=== PATIENT | male | born 1970 | race Two or more races ===

== ENCOUNTER 2021-11-02 19:58 | Inpatient (IN) | payer MEDICAID, OTHER ==
[~2021-11-02] VITALS: Ht 190.5 cm; Wt 83.5 kg
[2021-11-02 21:08] LABS: BASOPHILS % (AUTO) 0.3 % (0.0-2.0); EOSINOPHILS % (AUTO) 0.2 % (0.0-6.0); HEMATOCRIT 29 % (39-51); HEMOGLOBIN 9.5 g/dL (13.5-17.5); LYMPHOCYTES # (AUTO) 0.6 K/uL (0.8-4.8); LYMPHOCYTES % (AUTO) 5.9 % (20.0-44.0); MEAN CORPUSCULAR HGB CONC 33 g/dl (31.0-36.0); MEAN CORPUSCULAR VOLUME 86 fL (80-96); MONOCYTES # (AUTO) 0.6 K/uL (0.1-1.30); MONOCYTES % (AUTO) 5.6 % (2.0-12.0); NEUTROPHILS # (AUTO) 8.7 K/uL (1.8-8.9); PLATELET COUNT (AUTO) 405 K/uL (150-450); RED BLOOD CELL COUNT(AUTO) 3.39 MIL/uL (4.5-6.0); WHITE BLOOD COUNT (AUTO) 9.9 K/uL (4.3-11.0)
[2021-11-02] MEDS ORDERED: VANCOMYCIN 1 GM VIAL ONE (21:12)
[2021-11-02] MEDS ORDERED: VANCOMYCIN 500 MG VIAL ONE (21:12)
[2021-11-02] MEDS ORDERED: VANCOMYCIN HCL 1.25 GM in IV D5W 260 ML IV ONE (21:30)
[2021-11-02 21:41] LABS: CALCIUM, SERUM 8.4 mg/dL (8.5-10.1); CREATININE 1.3 mg/dL (0.6-1.3); POTASSIUM 4.9 mmol/L (3.5-5.1)
[2021-11-02] MEDS ORDERED: ZOLPIDEM TARTRATE 5 MG TABLET PO PRN (22:30)
[2021-11-02] MEDS ORDERED: MAGNESIUM HYDROXIDE 30 ML UDC PO PRN (22:30)
[2021-11-02] MEDS ORDERED: MAG HYDROX/AL HYDROX/SIMETH 30 ML UDC PO PRN (22:30)
[2021-11-02] MEDS ORDERED: Z GUARD REMEDY 4 OZ OINT TP PRN (22:30)
[2021-11-02] MEDS ORDERED: ONDANSETRON HCL/PF 4 MG/2 ML VIAL IVP PRN (22:30)
[2021-11-02] MEDS ORDERED: DEXTROSE 50%-WATER 50 ML DISP.SYRIN IV PRN (22:30)
[2021-11-02] MEDS ORDERED: HYDROCODONE/APAP 10/325MG TABLET PO PRN (22:30)
[2021-11-02] MEDS ORDERED: ACETAMINOPHEN 325 MG TABLET PO PRN (22:30)
[2021-11-02] MEDS ORDERED: HYDROMORPHONE 1 MG/1 ML DISP.SYRIN ONE (23:49)
[2021-11-03 01:00] VITALS: BP 125/71
[2021-11-03] MEDS: LORAZEPAM INJ 2 MG/ML VIAL IV PRN ×2 (01:30→20:22)
[2021-11-03] MEDS ORDERED: NALOXONE HCL 0.4 MG/ML AMPUL IV PRN (02:00)
[2021-11-03] MEDS ORDERED: oxyCODONE HCL SR 10MG TAB.SR.12H PO SCH (02:00)
[2021-11-03] MEDS ORDERED: PRED5TAB48 PO (03:19)
[2021-11-03] MEDS ORDERED: AMOX500C2 PO (03:19)
[2021-11-03] MEDS ORDERED: TOPI50TA24 PO (03:19)
[2021-11-03] MEDS ORDERED: CARV3.122 PO (03:19)
[2021-11-03] MEDS ORDERED: COLC0.6C3 PO (03:19)
[2021-11-03] MEDS ORDERED: FURO40TA5 PO (03:19)
[2021-11-03] MEDS ORDERED: OXYC15TA2 PO (03:19)
[2021-11-03] MEDS ORDERED: LITH300T3 PO (03:19)
[2021-11-03] MEDS ORDERED: GABA600T12 PO (03:19)
[2021-11-03] MEDS ORDERED: MIRT-90 PO (03:19)
[2021-11-03] MEDS ORDERED: METF-442 PO (03:19)
[2021-11-03] MEDS ORDERED: MEROPENEM 1 G VIAL IV ONE (03:43)
[2021-11-03] MEDS ORDERED: TOPIRAMATE 25 MG TABLET PO PRN (04:00)
[2021-11-03] MEDS: oxyCODONE IR immediate release 5 MG PO PRN ×3 (04:10→18:06)
[2021-11-03] MEDS ORDERED: MEROPENEM 1 G in IV NS 0.9% 100 ML IV SCH (05:00)
[2021-11-03 07:07] LABS: BASOPHILS % (AUTO) 0.4 % (0.0-2.0); HEMATOCRIT 28 % (39-51); HEMOGLOBIN 9.2 g/dL (13.5-17.5); LYMPHOCYTES # (AUTO) 1.4 K/uL (0.8-4.8); LYMPHOCYTES % (AUTO) 11.4 % (20.0-44.0); MEAN CORPUSCULAR HGB CONC 33 g/dl (31.0-36.0); MEAN CORPUSCULAR VOLUME 84 fL (80-96); MONOCYTES # (AUTO) 1.1 K/uL (0.1-1.30); MONOCYTES % (AUTO) 8.7 % (2.0-12.0); NEUTROPHILS % (AUTO) 78.5 % (43.0-81.0); PLATELET COUNT (AUTO) 426 K/uL (150-450); RED BLOOD CELL COUNT(AUTO) 3.35 MIL/uL (4.5-6.0); WHITE BLOOD COUNT (AUTO) 12.7 K/uL (4.3-11.0)
[2021-11-03] MEDS: HYDROMORPHONE INJ 2 MG/ML DISP.SYRIN IV PRN ×4 (07:17→23:47)
[2021-11-03 07:29] LABS: CALCIUM, SERUM 8.5 mg/dL (8.5-10.1); CREATININE 1.1 mg/dL (0.6-1.3); MAGNESIUM 1.8 mg/dL (1.8-2.4); PHOSPHORUS 2.6 mg/dL (2.5-4.9); POTASSIUM 4.3 mmol/L (3.5-5.1)
[2021-11-03] MEDS: BLOOD SUGAR DIAGNOSTIC 1 EACH STRIP VI SCH ×4 (07:35→21:20)
[2021-11-03] MEDS: INSULIN REGULAR, HUMAN 100 UNIT/ML 3 ML VIAL SQ PRN ×3 (07:39→17:13)
[2021-11-03] MEDS: VANCOMYCIN 0.75 GM in IV D5W 250 ML IV SCH ×3 (08:09→23:43)
[2021-11-03] MEDS: COLCHICINE 0.6 MG TABLET PO SCH (08:54)
[2021-11-03] MEDS: GABAPENTIN 300 MG CAPSULE PO SCH ×3 (08:54→16:12)
[2021-11-03] MEDS: CARVEDILOL 3.125 MG TABLET PO SCH ×2 (08:55→16:18)
[2021-11-03] MEDS: CLOTRIMAZOLE 1% 15 GM TUBE TP SCH ×2 (08:55→16:12)
[2021-11-03] MEDS ORDERED: LITHIUM CARBONATE ER 300 MG TABLET.SA PO SCH (09:00)
[2021-11-03] MEDS: LITHIUM CARBONATE (300 MG CAP) 300 MG CAPSULE PO SCH ×2 (09:22→16:12)
[2021-11-03] MEDS: MEROPENEM 1 G in IV NS 0.9% 100 ML IV SCH ×2 (12:08→20:22)
[2021-11-03 20:00] VITALS: BP 113/74
[2021-11-03] MEDS: MIRTAZAPINE 15 MG TABLET PO SCH (21:19)
[2021-11-03] MEDS: *INSULIN REGULAR(HUMULIN R)HUM 100 UNIT/ML VIAL SQ PRN (21:21)
[2021-11-04] MEDS: LORAZEPAM INJ 2 MG/ML VIAL IV PRN ×2 (03:00→16:52)
[2021-11-04 04:00] VITALS: BP 99/59
[2021-11-04] MEDS: MEROPENEM 1 G in IV NS 0.9% 100 ML IV SCH ×3 (04:56→20:10)
[2021-11-04 07:21] LABS: BASOPHILS # (AUTO) 0.1 K/uL (0.0-0.2); BASOPHILS % (AUTO) 0.8 % (0.0-2.0); EOSINOPHILS % (AUTO) 1.6 % (0.0-6.0); HEMATOCRIT 29 % (39-51); HEMOGLOBIN 9.3 g/dL (13.5-17.5); LYMPHOCYTES # (AUTO) 1.5 K/uL (0.8-4.8); LYMPHOCYTES % (AUTO) 15.7 % (20.0-44.0); MEAN CORPUSCULAR HGB CONC 33 g/dl (31.0-36.0); MEAN CORPUSCULAR VOLUME 85 fL (80-96); MONOCYTES # (AUTO) 0.8 K/uL (0.1-1.30); MONOCYTES % (AUTO) 8.5 % (2.0-12.0); NEUTROPHILS % (AUTO) 73.4 % (43.0-81.0); PLATELET COUNT (AUTO) 465 K/uL (150-450); RED BLOOD CELL COUNT(AUTO) 3.37 MIL/uL (4.5-6.0); WHITE BLOOD COUNT (AUTO) 9.5 K/uL (4.3-11.0)
[2021-11-04] MEDS: BLOOD SUGAR DIAGNOSTIC 1 EACH STRIP VI SCH ×4 (07:24→22:19)
[2021-11-04] MEDS: INSULIN REGULAR, HUMAN 100 UNIT/ML 3 ML VIAL SQ PRN ×3 (07:25→17:33)
[2021-11-04 07:27] LABS: CALCIUM, SERUM 8.6 mg/dL (8.5-10.1); CREATININE 1.2 mg/dL (0.6-1.3); POTASSIUM 4.4 mmol/L (3.5-5.1)
[2021-11-04] MEDS: VANCOMYCIN 0.75 GM in IV D5W 250 ML IV SCH ×2 (08:00→15:16)
[2021-11-04] MEDS: GABAPENTIN 300 MG CAPSULE PO SCH ×3 (08:51→16:51)
[2021-11-04] MEDS: CARVEDILOL 3.125 MG TABLET PO SCH ×2 (08:53→16:50)
[2021-11-04] MEDS: COLCHICINE 0.6 MG TABLET PO SCH (08:53)
[2021-11-04] MEDS: CLOTRIMAZOLE 1% 15 GM TUBE TP SCH ×2 (08:54→16:51)
[2021-11-04] MEDS: HYDROMORPHONE INJ 2 MG/ML DISP.SYRIN IV PRN ×3 (08:55→20:10)
[2021-11-04] MEDS: THERAHONEY GEL 1.5 OZ TUBE TP SCH (09:37)
[2021-11-04] MEDS: LITHIUM CARBONATE (300 MG CAP) 300 MG CAPSULE PO SCH ×2 (09:47→16:50)
[2021-11-04] MEDS: oxyCODONE IR immediate release 5 MG PO PRN ×2 (10:31→22:50)
[2021-11-04 16:00] VITALS: BP 103/77
[2021-11-04 20:00] VITALS: BP 108/68
[2021-11-04] MEDS: MIRTAZAPINE 15 MG TABLET PO SCH (22:19)
[2021-11-04] MEDS: *INSULIN REGULAR(HUMULIN R)HUM 100 UNIT/ML VIAL SQ PRN (22:20)
[2021-11-05] MEDS: VANCOMYCIN 0.75 GM in IV D5W 250 ML IV SCH ×2 (03:57→15:18)
[2021-11-05 04:00] VITALS: BP 107/61
[2021-11-05] MEDS: HYDROMORPHONE INJ 2 MG/ML DISP.SYRIN IV PRN ×2 (04:38→21:13)
[2021-11-05] MEDS: MEROPENEM 1 G in IV NS 0.9% 100 ML IV SCH ×3 (05:30→21:04)
[2021-11-05 06:44] LABS: CALCIUM, SERUM 8.3 mg/dL (8.5-10.1); CREATININE 1.4 mg/dL (0.6-1.3); POTASSIUM 4.5 mmol/L (3.5-5.1)
[2021-11-05 06:51] LABS: BASOPHILS # (AUTO) 0.1 K/uL (0.0-0.2); BASOPHILS % (AUTO) 0.6 % (0.0-2.0); EOSINOPHILS % (AUTO) 1.5 % (0.0-6.0); HEMATOCRIT 29 % (39-51); HEMOGLOBIN 9.3 g/dL (13.5-17.5); LYMPHOCYTES # (AUTO) 1.7 K/uL (0.8-4.8); LYMPHOCYTES % (AUTO) 17.6 % (20.0-44.0); MEAN CORPUSCULAR HGB CONC 33 g/dl (31.0-36.0); MEAN CORPUSCULAR VOLUME 85 fL (80-96); MONOCYTES # (AUTO) 0.9 K/uL (0.1-1.30); MONOCYTES % (AUTO) 9.4 % (2.0-12.0); NEUTROPHILS # (AUTO) 6.7 K/uL (1.8-8.9); NEUTROPHILS % (AUTO) 70.9 % (43.0-81.0); PLATELET COUNT (AUTO) 473 K/uL (150-450); RED BLOOD CELL COUNT(AUTO) 3.36 MIL/uL (4.5-6.0); WHITE BLOOD COUNT (AUTO) 9.5 K/uL (4.3-11.0)
[2021-11-05] MEDS: BLOOD SUGAR DIAGNOSTIC 1 EACH STRIP VI SCH ×4 (07:29→21:57)
[2021-11-05] MEDS: oxyCODONE IR immediate release 5 MG PO PRN ×2 (08:00→14:53)
[2021-11-05] MEDS: INSULIN REGULAR, HUMAN 100 UNIT/ML 3 ML VIAL SQ PRN ×2 (08:31→17:35)
[2021-11-05] MEDS: CLOTRIMAZOLE 1% 15 GM TUBE TP SCH ×2 (08:40→17:22)
[2021-11-05] MEDS: THERAHONEY GEL 1.5 OZ TUBE TP SCH (08:40)
[2021-11-05] MEDS: COLCHICINE 0.6 MG TABLET PO SCH (08:46)
[2021-11-05] MEDS: LITHIUM CARBONATE (300 MG CAP) 300 MG CAPSULE PO SCH ×2 (08:46→17:21)
[2021-11-05] MEDS: GABAPENTIN 300 MG CAPSULE PO SCH ×3 (08:46→17:21)
[2021-11-05] MEDS: CARVEDILOL 3.125 MG TABLET PO SCH ×2 (08:46→17:00)
[2021-11-05 12:00] VITALS: BP 116/73
[2021-11-05 20:00] VITALS: BP 107/55
[2021-11-05] MEDS: MIRTAZAPINE 15 MG TABLET PO SCH (21:04)
[2021-11-06] MEDS: VANCOMYCIN 0.75 GM in IV D5W 250 ML IV SCH ×2 (02:01→15:03)
[2021-11-06] MEDS: oxyCODONE IR immediate release 5 MG PO PRN ×2 (02:56→15:29)
[2021-11-06 04:00] VITALS: BP 156/68
[2021-11-06] MEDS: MEROPENEM 1 G in IV NS 0.9% 100 ML IV SCH ×3 (04:04→20:48)
[2021-11-06] MEDS: LORAZEPAM INJ 2 MG/ML VIAL IV PRN ×3 (06:19→20:14)
[2021-11-06 06:26] LABS: BASOPHILS % (AUTO) 0.7 % (0.0-2.0); EOSINOPHILS % (AUTO) 1.9 % (0.0-6.0); HEMATOCRIT 28 % (39-51); HEMOGLOBIN 9.2 g/dL (13.5-17.5); MEAN CORPUSCULAR HGB CONC 33 g/dl (31.0-36.0); MEAN CORPUSCULAR VOLUME 84 fL (80-96); MONOCYTES % (AUTO) 8.2 % (2.0-12.0); NEUTROPHILS % (AUTO) 74.2 % (43.0-81.0); PLATELET COUNT (AUTO) 455 K/uL (150-450); RED BLOOD CELL COUNT(AUTO) 3.32 MIL/uL (4.5-6.0); WHITE BLOOD COUNT (AUTO) 9.1 K/uL (4.3-11.0)
[2021-11-06 06:27] LABS: BASOPHILS # (AUTO) 0.1 K/uL (0.0-0.2); LYMPHOCYTES # (AUTO) 1.4 K/uL (0.8-4.8); MONOCYTES # (AUTO) 0.7 K/uL (0.1-1.30); NEUTROPHILS # (AUTO) 6.8 K/uL (1.8-8.9)
[2021-11-06 06:45] LABS: CALCIUM, SERUM 8.5 mg/dL (8.5-10.1); CREATININE 1.3 mg/dL (0.6-1.3); POTASSIUM 4.3 mmol/L (3.5-5.1)
[2021-11-06] MEDS: GABAPENTIN 300 MG CAPSULE PO SCH ×3 (08:20→17:04)
[2021-11-06] MEDS: LITHIUM CARBONATE (300 MG CAP) 300 MG CAPSULE PO SCH ×2 (08:20→17:04)
[2021-11-06] MEDS: COLCHICINE 0.6 MG TABLET PO SCH (08:20)
[2021-11-06] MEDS: CARVEDILOL 3.125 MG TABLET PO SCH ×2 (08:20→17:04)
[2021-11-06] MEDS: *INSULIN REGULAR(HUMULIN R)HUM 100 UNIT/ML VIAL SQ PRN ×4 (08:21→22:11)
[2021-11-06] MEDS: BLOOD SUGAR DIAGNOSTIC 1 EACH STRIP VI SCH ×4 (08:21→22:12)
[2021-11-06] MEDS: HYDROMORPHONE INJ 2 MG/ML DISP.SYRIN IV PRN ×4 (08:30→21:19)
[2021-11-06] MEDS: THERAHONEY GEL 1.5 OZ TUBE TP SCH (08:46)
[2021-11-06] MEDS: CLOTRIMAZOLE 1% 15 GM TUBE TP SCH ×2 (08:46→17:04)
[2021-11-06 09:36] VITALS: BP 115/71
[2021-11-06 12:00] VITALS: BP 105/44
[2021-11-06] MEDS: GLUCERNA SHAKE 237 ML CAN PO SCH ×2 (12:35→17:24)
[2021-11-06 20:00] VITALS: BP 119/65
[2021-11-06] MEDS: MIRTAZAPINE 15 MG TABLET PO SCH (21:21)
[2021-11-07] MEDS: HYDROMORPHONE INJ 2 MG/ML DISP.SYRIN IV PRN ×4 (01:22→20:01)
[2021-11-07] MEDS: VANCOMYCIN 0.75 GM in IV D5W 250 ML IV SCH ×2 (03:27→14:32)
[2021-11-07 04:00] VITALS: BP 110/60
[2021-11-07] MEDS: LORAZEPAM INJ 2 MG/ML VIAL IV PRN ×3 (04:04→21:22)
[2021-11-07] MEDS: MEROPENEM 1 G in IV NS 0.9% 100 ML IV SCH ×3 (04:04→21:22)
[2021-11-07 07:09] LABS: CALCIUM, SERUM 8.5 mg/dL (8.5-10.1); CREATININE 1.3 mg/dL (0.6-1.3); POTASSIUM 4.4 mmol/L (3.5-5.1)
[2021-11-07] MEDS: BLOOD SUGAR DIAGNOSTIC 1 EACH STRIP VI SCH ×4 (08:19→22:22)
[2021-11-07] MEDS: GLUCERNA SHAKE 237 ML CAN PO SCH ×3 (08:19→17:30)
[2021-11-07] MEDS: CARVEDILOL 3.125 MG TABLET PO SCH ×2 (08:20→17:29)
[2021-11-07] MEDS: GABAPENTIN 300 MG CAPSULE PO SCH ×3 (08:20→17:29)
[2021-11-07] MEDS: COLCHICINE 0.6 MG TABLET PO SCH (08:20)
[2021-11-07] MEDS: LITHIUM CARBONATE (300 MG CAP) 300 MG CAPSULE PO SCH ×2 (08:20→17:29)
[2021-11-07] MEDS: *INSULIN REGULAR(HUMULIN R)HUM 100 UNIT/ML VIAL SQ PRN ×4 (08:35→22:22)
[2021-11-07] MEDS: THERAHONEY GEL 1.5 OZ TUBE TP SCH (08:36)
[2021-11-07] MEDS: CLOTRIMAZOLE 1% 15 GM TUBE TP SCH ×2 (08:36→17:30)
[2021-11-07 12:00] VITALS: BP 114/60
[2021-11-07] MEDS: oxyCODONE IR immediate release 5 MG PO PRN (15:32)
[2021-11-07 20:00] VITALS: BP 103/59
[2021-11-07] MEDS: MIRTAZAPINE 15 MG TABLET PO SCH (21:22)
[2021-11-08] MEDS: VANCOMYCIN 0.75 GM in IV D5W 250 ML IV SCH ×2 (03:51→15:26)
[2021-11-08 04:00] VITALS: BP 116/58
[2021-11-08] MEDS: MEROPENEM 1 G in IV NS 0.9% 100 ML IV SCH ×3 (05:38→21:02)
[2021-11-08 07:23] LABS: BASOPHILS # (AUTO) 0.1 K/uL (0.0-0.2); BASOPHILS % (AUTO) 0.7 % (0.0-2.0); HEMATOCRIT 28 % (39-51); LYMPHOCYTES # (AUTO) 1.2 K/uL (0.8-4.8); MEAN CORPUSCULAR HGB CONC 33 g/dl (31.0-36.0); MEAN CORPUSCULAR VOLUME 85 fL (80-96); MONOCYTES # (AUTO) 0.9 K/uL (0.1-1.30); MONOCYTES % (AUTO) 10.8 % (2.0-12.0); NEUTROPHILS # (AUTO) 5.6 K/uL (1.8-8.9); NEUTROPHILS % (AUTO) 71.5 % (43.0-81.0); PLATELET COUNT (AUTO) 411 K/uL (150-450); RED BLOOD CELL COUNT(AUTO) 3.25 MIL/uL (4.5-6.0); WHITE BLOOD COUNT (AUTO) 7.9 K/uL (4.3-11.0)
[2021-11-08 07:38] LABS: CALCIUM, SERUM 8.9 mg/dL (8.5-10.1); CREATININE 1.3 mg/dL (0.6-1.3); POTASSIUM 4.1 mmol/L (3.5-5.1)
[2021-11-08] MEDS: GABAPENTIN 300 MG CAPSULE PO SCH ×3 (08:24→17:11)
[2021-11-08] MEDS: LITHIUM CARBONATE (300 MG CAP) 300 MG CAPSULE PO SCH ×2 (08:24→17:11)
[2021-11-08] MEDS: COLCHICINE 0.6 MG TABLET PO SCH (08:24)
[2021-11-08] MEDS: CARVEDILOL 3.125 MG TABLET PO SCH ×2 (08:25→17:12)
[2021-11-08] MEDS: BLOOD SUGAR DIAGNOSTIC 1 EACH STRIP VI SCH ×4 (08:26→22:25)
[2021-11-08] MEDS: GLUCERNA SHAKE 237 ML CAN PO SCH ×3 (08:27→17:39)
[2021-11-08] MEDS: CLOTRIMAZOLE 1% 15 GM TUBE TP SCH ×2 (08:27→17:12)
[2021-11-08] MEDS: THERAHONEY GEL 1.5 OZ TUBE TP SCH (08:28)
[2021-11-08] MEDS: LORAZEPAM INJ 2 MG/ML VIAL IV PRN ×2 (10:17→17:49)
[2021-11-08] MEDS: *INSULIN REGULAR(HUMULIN R)HUM 100 UNIT/ML VIAL SQ PRN ×3 (11:43→22:29)
[2021-11-08 12:00] VITALS: BP 128/54
[2021-11-08] MEDS: oxyCODONE IR immediate release 5 MG PO PRN ×2 (12:38→21:11)
[2021-11-08 20:00] VITALS: BP 101/60
[2021-11-08] MEDS: MIRTAZAPINE 15 MG TABLET PO SCH (21:10)
[2021-11-09] MEDS: LORAZEPAM INJ 2 MG/ML VIAL IV PRN ×2 (00:33→09:59)
[2021-11-09] MEDS: VANCOMYCIN 0.75 GM in IV D5W 250 ML IV SCH ×2 (03:29→15:48)
[2021-11-09 04:00] VITALS: BP 114/56
[2021-11-09] MEDS: MEROPENEM 1 G in IV NS 0.9% 100 ML IV SCH ×3 (05:00→21:32)
[2021-11-09 07:17] LABS: CALCIUM, SERUM 8.3 mg/dL (8.5-10.1); CREATININE 1.2 mg/dL (0.6-1.3); POTASSIUM 4.3 mmol/L (3.5-5.1)
[2021-11-09 07:19] LABS: BASOPHILS # (AUTO) 0.1 K/uL (0.0-0.2); EOSINOPHILS % (AUTO) 1.9 % (0.0-6.0); HEMATOCRIT 26 % (39-51); HEMOGLOBIN 8.7 g/dL (13.5-17.5); LYMPHOCYTES # (AUTO) 1.4 K/uL (0.8-4.8); LYMPHOCYTES % (AUTO) 16.6 % (20.0-44.0); MEAN CORPUSCULAR HGB CONC 33 g/dl (31.0-36.0); MEAN CORPUSCULAR VOLUME 84 fL (80-96); MONOCYTES # (AUTO) 0.8 K/uL (0.1-1.30); MONOCYTES % (AUTO) 10.4 % (2.0-12.0); NEUTROPHILS # (AUTO) 5.7 K/uL (1.8-8.9); NEUTROPHILS % (AUTO) 70.1 % (43.0-81.0); PLATELET COUNT (AUTO) 365 K/uL (150-450); RED BLOOD CELL COUNT(AUTO) 3.14 MIL/uL (4.5-6.0); WHITE BLOOD COUNT (AUTO) 8.1 K/uL (4.3-11.0)
[2021-11-09] MEDS: COLCHICINE 0.6 MG TABLET PO SCH (08:20)
[2021-11-09] MEDS: GABAPENTIN 300 MG CAPSULE PO SCH ×3 (08:20→17:25)
[2021-11-09] MEDS: LITHIUM CARBONATE (300 MG CAP) 300 MG CAPSULE PO SCH ×2 (08:20→17:25)
[2021-11-09] MEDS: oxyCODONE IR immediate release 5 MG PO PRN ×4 (08:20→21:57)
[2021-11-09] MEDS: BLOOD SUGAR DIAGNOSTIC 1 EACH STRIP VI SCH ×4 (08:33→21:50)
[2021-11-09] MEDS: GLUCERNA SHAKE 237 ML CAN PO SCH ×3 (08:34→17:25)
[2021-11-09] MEDS: CARVEDILOL 3.125 MG TABLET PO SCH ×2 (09:00→17:00)
[2021-11-09] MEDS: CLOTRIMAZOLE 1% 15 GM TUBE TP SCH ×2 (09:07→17:34)
[2021-11-09] MEDS ORDERED: CEFE2FRO IV (09:11)
[2021-11-09] MEDS ORDERED: VANC750F2 IV (09:11)
[2021-11-09] MEDS: THERAHONEY GEL 1.5 OZ TUBE TP SCH (09:31)
[2021-11-09 12:00] VITALS: BP 93/51
[2021-11-09] MEDS: INSULIN REGULAR, HUMAN 100 UNIT/ML 3 ML VIAL SQ PRN (18:00)
[2021-11-09 20:00] VITALS: BP 115/65
[2021-11-09] MEDS: MIRTAZAPINE 15 MG TABLET PO SCH (21:32)
[2021-11-09] MEDS: *INSULIN REGULAR(HUMULIN R)HUM 100 UNIT/ML VIAL SQ PRN (21:53)
[2021-11-10] MEDS: oxyCODONE IR immediate release 5 MG PO PRN ×3 (01:58→17:25)
[2021-11-10] MEDS: VANCOMYCIN 0.75 GM in IV D5W 250 ML IV SCH ×2 (03:39→15:23)
[2021-11-10 04:00] VITALS: BP 107/54
[2021-11-10] MEDS: MEROPENEM 1 G in IV NS 0.9% 100 ML IV SCH ×2 (05:17→12:48)
[2021-11-10] MEDS: BLOOD SUGAR DIAGNOSTIC 1 EACH STRIP VI SCH ×3 (07:54→17:44)
[2021-11-10 08:02] LABS: CALCIUM, SERUM 8.7 mg/dL (8.5-10.1); CREATININE 1.2 mg/dL (0.6-1.3); POTASSIUM 4.5 mmol/L (3.5-5.1)
[2021-11-10] MEDS: GABAPENTIN 300 MG CAPSULE PO SCH ×3 (08:47→17:25)
[2021-11-10] MEDS: LITHIUM CARBONATE (300 MG CAP) 300 MG CAPSULE PO SCH ×2 (08:47→17:25)
[2021-11-10] MEDS: COLCHICINE 0.6 MG TABLET PO SCH (08:48)
[2021-11-10] MEDS: CARVEDILOL 3.125 MG TABLET PO SCH ×2 (08:48→17:00)
[2021-11-10] MEDS: GLUCERNA SHAKE 237 ML CAN PO SCH ×3 (10:00→17:44)
[2021-11-10] MEDS: LORAZEPAM INJ 2 MG/ML VIAL IV PRN (11:08)
[2021-11-10 12:00] VITALS: BP 94/56
[2021-11-10] MEDS: THERAHONEY GEL 1.5 OZ TUBE TP SCH (15:23)
[2021-11-10] MEDS: CLOTRIMAZOLE 1% 15 GM TUBE TP SCH ×2 (15:23→17:45)
[2021-11-10 17:00] VITALS: BP 94/56
[2021-11-12] MEDS ORDERED: LORA-259 PO (07:27)
[2021-11-12] MEDS ORDERED: OXYC15TA2 PO (07:27)
== END 2021-11-10 18:22 | disposition home health service (06) | DRG 344 ==
LOC: ER 20:00 → TRANSITION 23:23 → OBSVTOIN 23:23 → MEDSG1 23:25
PROVIDERS: ADMIT Nurse Practitioner Acute Care; ATTEND Internal Medicine
PROC: 0JBR0ZZ Excision of Left Foot Subcutaneous Tissue and Fascia, Open Approach (ICD-10-PCS; principal; 2021-11-04)
PROC: 0JBQ0ZZ Excision of Right Foot Subcutaneous Tissue and Fascia, Open Approach (ICD-10-PCS; 2021-11-04)
PROC: 02HV33Z Insertion of Infusion Device into Superior Vena Cava, Percutaneous Approach (ICD-10-PCS; 2021-11-07)
PROC: B548ZZA Ultrasonography of Superior Vena Cava, Guidance (ICD-10-PCS; 2021-11-07)
DX: E11.69 Type 2 diabetes mellitus with other specified complication (principal); M86.8X7 Other osteomyelitis, ankle and foot; N17.0 Acute kidney failure with tubular necrosis; E11.52 Type 2 diabetes mellitus with diabetic peripheral angiopathy with gangrene; I96 Gangrene, not elsewhere classified; R64 Cachexia; I11.0 Hypertensive heart disease with heart failure; E83.51 Hypocalcemia; D63.8 Anemia in other chronic diseases classified elsewhere; E11.40 Type 2 diabetes mellitus with diabetic neuropathy, unspecified; I50.9 Heart failure, unspecified; E11.621 Type 2 diabetes mellitus with foot ulcer; L03.115 Cellulitis of right lower limb; L03.116 Cellulitis of left lower limb; E11.622 Type 2 diabetes mellitus with other skin ulcer; Z20.822 Contact with and (suspected) exposure to COVID-19; E11.65 Type 2 diabetes mellitus with hyperglycemia; G89.4 Chronic pain syndrome; E78.5 Hyperlipidemia, unspecified; F41.9 Anxiety disorder, unspecified; F43.10 Post-traumatic stress disorder, unspecified; R79.89 Other specified abnormal findings of blood chemistry; I77.6 Arteritis, unspecified; F19.11 Other psychoactive substance abuse, in remission; F31.9 Bipolar disorder, unspecified; F17.200 Nicotine dependence, unspecified, uncomplicated; S61.402A Unspecified open wound of left hand, initial encounter; S61.401A Unspecified open wound of right hand, initial encounter; X58.XXXA Exposure to other specified factors, initial encounter; Y92.9 Unspecified place or not applicable; L97.429 Non-pressure chronic ulcer of left heel and midfoot with unspecified severity; L97.419 Non-pressure chronic ulcer of right heel and midfoot with unspecified severity; L97.529 Non-pressure chronic ulcer of other part of left foot with unspecified severity; L97.519 Non-pressure chronic ulcer of other part of right foot with unspecified severity; L97.329 Non-pressure chronic ulcer of left ankle with unspecified severity; L97.319 Non-pressure chronic ulcer of right ankle with unspecified severity; Z91.19 Patient's noncompliance with other medical treatment and regimen; Z62.810 Personal history of physical and sexual abuse in childhood; L03.113 Cellulitis of right upper limb; H91.90 Unspecified hearing loss, unspecified ear; L03.114 Cellulitis of left upper limb; F10.10 Alcohol abuse, uncomplicated; Y90.9 Presence of alcohol in blood, level not specified; F41.0 Panic disorder [episodic paroxysmal anxiety]; F40.10 Social phobia, unspecified; M77.30 Calcaneal spur, unspecified foot; F15.11 Other stimulant abuse, in remission; M86.8X4 Other osteomyelitis, hand; Z88.5 Allergy status to narcotic agent; Z88.8 Allergy status to other drugs, medicaments and biological substances; B96.89 Other specified bacterial agents as the cause of diseases classified elsewhere
CPT/HCPCS: 36415; 71045-TC; 73200-TC; 73620-TC; 80048-TC; 80202-TC; 82962-TC; 83735-TC; 84100-TC; 85025-TC; 85652-TC; 86140; 87040-TC; 87070-TC; 87081-TC; 87186-TC; 93307-TC; 97112-TC; 97530-TC; A4217; A6253; A6403; C9803; G0378; J1170; J1815; J2060; J2185; J3370; J7030; J7040; J7050; J7060